=== PATIENT | female | born 1970 | race African-American/Black ===

== ENCOUNTER 2020-08-23 13:07 | Inpatient (IN) | payer OTHER ==
[2020-08-23 13:38] VITALS: BMI 22.8
[2020-08-23] MEDS ORDERED: MAG HYDROX/AL HYDROX/SIMETH 30 ML UNIT-DOSE CUP PO PRN (16:01)
[2020-08-23] MEDS ORDERED: chlordiazePOXIDE HCL 25 MG CAPSULE PO PRN (16:01)
[2020-08-23] MEDS ORDERED: MENTHOL/PHENOL 1 EACH UD MM PRN (16:01)
[2020-08-23] MEDS ORDERED: IBUPROFEN 400 MG TABLET (FP) PO PRN (16:01)
[2020-08-23] MEDS ORDERED: MAGNESIUM CITRATE 300 ML BOTTLE PO PRN (16:01)
[2020-08-23] MEDS ORDERED: ONDANSETRON *ODT* 4 MG TABLET SL PRN (16:01)
[2020-08-23] MEDS ORDERED: MAGNESIUM HYDROX 2400MG/30ML ORAL SUSPENSION 30 ML CUP PO PRN (16:01)
[2020-08-23] MEDS ORDERED: BISMUTH SUBSALICYLATE 524 MG/30 ML UD PO PRN (16:01)
[2020-08-23] MEDS ORDERED: ACETAMINOPHEN 325 MG TABLET (FP) PO PRN ×2 (16:01)
[2020-08-23] MEDS ORDERED: INSULIN (NOVOLOG) ASPART 100 UNITS/ML 10ML VIAL ONE (16:24)
[2020-08-23] MEDS: INSULIN SLIDING SCALE (NOVOLOG) 1 VIAL SQ SCH ×2 (16:45→22:26)
[2020-08-23] MEDS: hydrOXYzine PAMOATE 25 MG CAPSULE (FP) PO SCH ×2 (18:29→22:23)
[2020-08-23] MEDS: chlordiazePOXIDE HCL 25 MG CAPSULE PO SCH ×2 (18:29→22:22)
[2020-08-23] MEDS: PRENATAL VITAMINS W/ FOLIC ACID TABLET (FP) PO SCH (18:29)
[2020-08-23] MEDS: MELATONIN 5 MG TABLETS PO SCH (22:22)
[2020-08-23] MEDS: THIAMINE HCL 100 MG TABLET (FP) PO SCH (22:23)
[2020-08-24] MEDS: hydrOXYzine PAMOATE 25 MG CAPSULE (FP) PO SCH ×2 (06:01→10:59)
[2020-08-24] MEDS: chlordiazePOXIDE HCL 25 MG CAPSULE PO SCH ×4 (06:01→23:11)
[2020-08-24] MEDS: metFORMIN HCL 500 MG TABLET (FP) PO SCH (06:06)
[2020-08-24] MEDS: INSULIN SLIDING SCALE (NOVOLOG) 1 VIAL SQ SCH ×4 (07:27→23:11)
[2020-08-24] MEDS: PRENATAL VITAMINS W/ FOLIC ACID TABLET (FP) PO SCH (10:59)
[2020-08-24 13:42] LABS: HEMATOCRIT 30.9 % (32.4-45.2); HEMOGLOBIN 10.3 GM/dL (10.7-15.3); MCH 33.7 pg (25.7-33.7); MCHC 33.3 g/dl (32.0-36.0); MEAN CELL VOLUME 101.1 fl (80-96); MEAN PLT VOLUME 8.9 fl (7.5-11.1); PLATELET COUNT 125 K/MM3 (134-434); RBC 3.06 M/mm3 (3.60-5.2); RDW 13.8 % (11.6-15.6); WHITE BLOOD COUNT 4.8 K/mm3 (4.0-10.0)
[2020-08-24 13:47] LABS: POTASSIUM 4.2 mmol/L (3.5-5.1)
[2020-08-24 13:58] LABS: CALCIUM 7.6 mg/dL (8.5-10.1)
[2020-08-24 13:59] LABS: BLOOD UREA NITROGEN 6.3 mg/dL (7-18)
[2020-08-24 14:02] LABS: CREATININE 0.7 mg/dL (0.55-1.3)
[2020-08-24 14:03] LABS: TOT PROT 7.4 g/dl (6.4-8.2)
[2020-08-24] MEDS: THIAMINE HCL 100 MG TABLET (FP) PO SCH (23:02)
[2020-08-24] MEDS: MELATONIN 5 MG TABLETS PO SCH (23:02)
[2020-08-24] MEDS: hydrOXYzine PAMOATE 25 MG CAPSULE (FP) PO PRN (23:03)
[2020-08-25] MEDS: chlordiazePOXIDE HCL 25 MG CAPSULE PO SCH ×4 (07:07→22:54)
[2020-08-25] MEDS: hydrOXYzine PAMOATE 25 MG CAPSULE (FP) PO PRN ×2 (07:08→22:57)
[2020-08-25] MEDS: metFORMIN HCL 500 MG TABLET (FP) PO SCH (07:08)
[2020-08-25] MEDS: INSULIN SLIDING SCALE (NOVOLOG) 1 VIAL SQ SCH ×4 (07:35→22:56)
[2020-08-25] MEDS: PRENATAL VITAMINS W/ FOLIC ACID TABLET (FP) PO SCH (10:35)
[2020-08-25] MEDS: METHOCARBAMOL 500 MG TABLET PO PRN ×2 (10:38→22:57)
[2020-08-25] MEDS: FERROUS SO4 325 MG TABLET (FP) PO SCH (17:54)
[2020-08-25] MEDS ORDERED: MIRTAZAPINE 15 MG TABLET (FP) PO SCH (22:00)
[2020-08-25] MEDS: THIAMINE HCL 100 MG TABLET (FP) PO SCH (22:54)
[2020-08-25] MEDS: MELATONIN 5 MG TABLETS PO SCH (22:55)
[2020-08-26] MEDS ORDERED: chlordiazePOXIDE HCL 10 MG CAPSULE PO PRN
[2020-08-26] MEDS ORDERED: LACTULOSE 20 GM/30 ML UDC (FOR ORAL USE ONLY) PO PRN (04:46)
[2020-08-26] MEDS ORDERED: chlordiazePOXIDE HCL 10 MG CAPSULE PO SCH (05:00)
[2020-08-26] MEDS: LORazepam 1 MG TABLET PO SCH ×2 (05:08→11:56)
[2020-08-26] MEDS: metFORMIN HCL 500 MG TABLET (FP) PO SCH (06:17)
[2020-08-26] MEDS: INSULIN SLIDING SCALE (NOVOLOG) 1 VIAL SQ SCH ×2 (06:17→12:10)
[2020-08-26] MEDS: FERROUS SO4 325 MG TABLET (FP) PO SCH ×2 (08:27→11:59)
[2020-08-26 10:26] LABS: BASO % 0.5 % (0-2.0); HEMATOCRIT 32.6 % (32.4-45.2); HEMOGLOBIN 10.7 GM/dL (10.7-15.3); LYMPH % 18.9 % (8-40); MCH 33.1 pg (25.7-33.7); MCHC 32.7 g/dl (32.0-36.0); MEAN CELL VOLUME 101.2 fl (80-96); MEAN PLT VOLUME 9.5 fl (7.5-11.1); MONO % 12.8 % (3.8-10.2); NEUT % 67.8 % (42.8-82.8); PLATELET COUNT 90 K/MM3 (134-434); RBC 3.22 M/mm3 (3.60-5.2); RDW 14.2 % (11.6-15.6); WHITE BLOOD COUNT 5.8 K/mm3 (4.0-10.0)
[2020-08-26 10:30] LABS: POTASSIUM 3.2 mmol/L (3.5-5.1)
[2020-08-26 10:35] VITALS: BP 97/65; PULSE 116; TEMP 96.6
[2020-08-26 10:36] LABS: CALCIUM 8.6 mg/dL (8.5-10.1)
[2020-08-26 10:37] LABS: ALBUMIN 2.7 g/dl (3.4-5.0); BLOOD UREA NITROGEN 6.8 mg/dL (7-18)
[2020-08-26 10:40] LABS: CREATININE 0.9 mg/dL (0.55-1.3)
[2020-08-26 10:42] LABS: TOT PROT 7.3 g/dl (6.4-8.2)
[2020-08-26] MEDS ORDERED: POTASSIUM CHLORIDE TABS 20 MEQ TABLET.ER (FP) PO ONE (11:16)
[2020-08-26 11:46] LABS: ANISOCYTOSIS 1+; MACROCYTOSIS 1+; PLATELET ESTIMATE DECREASED
[2020-08-26] MEDS: PRENATAL VITAMINS W/ FOLIC ACID TABLET (FP) PO SCH (11:55)
[2020-08-26] MEDS ORDERED: LACTULOSE 20 GM/30 ML UDC (FOR ORAL USE ONLY) PO ONE (12:06)
[2020-08-27] MEDS ORDERED: LORazepam 0.5 MG TABLET PO SCH (05:00)
[2020-08-27] MEDS ORDERED: chlordiazePOXIDE HCL 10 MG CAPSULE PO SCH (05:00)
[2020-08-28] MEDS ORDERED: LORazepam 0.5 MG TABLET PO PRN
[2020-08-28] MEDS ORDERED: chlordiazePOXIDE HCL 10 MG CAPSULE PO ONE (05:00)
[2020-08-28] MEDS ORDERED: LORazepam 0.5 MG TABLET PO ONE (05:00)
== END 2020-08-26 13:15 | disposition left against medical advice (07) | DRG 770 ==
LOC: YASAS 13:07 → Y3N 16:24
PROVIDERS: ADMIT Allergy & Immunology; ATTEND Allergy & Immunology
PROC: HZ2ZZZZ Detoxification Services for Substance Abuse Treatment (ICD-10-PCS; principal; 2020-08-23)
DX: F10.230 Alcohol dependence with withdrawal, uncomplicated (principal); F14.20 Cocaine dependence, uncomplicated; F12.20 Cannabis dependence, uncomplicated; F19.282 Other psychoactive substance dependence with psychoactive substance-induced sleep disorder; F19.280 Other psychoactive substance dependence with psychoactive substance-induced anxiety disorder; F19.24 Other psychoactive substance dependence with psychoactive substance-induced mood disorder; F43.10 Post-traumatic stress disorder, unspecified; U07.1 COVID-19; E78.5 Hyperlipidemia, unspecified; E11.65 Type 2 diabetes mellitus with hyperglycemia; Z79.84 Long term (current) use of oral hypoglycemic drugs; I10 Essential (primary) hypertension; Z91.410 Personal history of adult physical and sexual abuse; Z88.8 Allergy status to other drugs, medicaments and biological substances; R79.89 Other specified abnormal findings of blood chemistry
CPT/HCPCS: 36415; 80053; 81025; 82140; 82962; 85025; 85027; 86780; 93005; 93010; C9803; U0003

== ENCOUNTER 2022-08-01 12:20 | Inpatient (IN) | payer OTHER ==
[2022-08-01 14:01] VITALS: BMI 21.9
[2022-08-01] MEDS ORDERED: hydrOXYzine PAMOATE 25 MG CAPSULE (FP) PO PRN (14:55)
[2022-08-01] MEDS ORDERED: ONDANSETRON *ODT* 4 MG TABLET SL PRN (14:55)
[2022-08-01] MEDS ORDERED: DICYCLOMINE HCL 10 MG CAPSULE PO PRN (14:55)
[2022-08-01] MEDS ORDERED: diazePAM 5 MG TABLET PO PRN (14:55)
[2022-08-01] MEDS ORDERED: POLYETHYLENE GLYCOL (HEALTHYLAX) 3350 17 GM PACKET PO PRN (14:55)
[2022-08-01] MEDS ORDERED: BENZOCAINE/MENTHOL (CHLORASEPTIC ) LOZENGE MM PRN (14:55)
[2022-08-01] MEDS ORDERED: MAGNESIUM HYDROX 2400MG/30ML ORAL SUSPENSION 30 ML CUP PO PRN (14:55)
[2022-08-01] MEDS ORDERED: ACETAMINOPHEN 325 MG TABLET (FP) PO PRN ×2 (14:55)
[2022-08-01] MEDS ORDERED: NALOXONE HCL (KLOXXADO) 8 MG SPRAY NS PRN (14:55)
[2022-08-01] MEDS ORDERED: IBUPROFEN 400 MG TABLET (FP) PO PRN (14:55)
[2022-08-01] MEDS ORDERED: MAG HYDROX/AL HYDROX/SIMETH 30 ML UNIT-DOSE CUP PO PRN (14:55)
[2022-08-01] MEDS ORDERED: NICOTINE 10 MG CARTRIDGE (INHALER) IH PRN (14:55)
[2022-08-01] MEDS ORDERED: LOPERAMIDE HCL 2 MG CAPSULE PO PRN (14:55)
[2022-08-01] MEDS ORDERED: BISMUTH SUBSALICYLATE 524 MG/30 ML PO PRN (14:55)
[2022-08-01] MEDS ORDERED: diazePAM 5 MG TABLET ONE (16:50)
[2022-08-01] MEDS ORDERED: cloNIDine HCL 0.1 MG TABLET ONE (16:51)
[2022-08-01] MEDS ORDERED: PRENATAL VITAMINS W/ FOLIC ACID TABLET (FP) PO ONE (16:51)
[2022-08-01] MEDS: PRENATAL VITAMINS W/ FOLIC ACID TABLET (FP) PO SCH (16:57)
[2022-08-01] MEDS: diazePAM 5 MG TABLET PO SCH ×2 (16:57→22:38)
[2022-08-01] MEDS: cloNIDine HCL 0.1 MG TABLET PO PRN ×2 (17:04→21:08)
[2022-08-01] MEDS: THIAMINE HCL 100 MG TABLET (FP) PO SCH (22:38)
[2022-08-01] MEDS: MELATONIN 5 MG TABLETS PO SCH (22:38)
[2022-08-01] MEDS: METHOCARBAMOL 500 MG TABLET PO PRN (22:39)
[2022-08-02] MEDS: diazePAM 5 MG TABLET PO SCH ×4 (05:24→22:20)
[2022-08-02] MEDS: PRENATAL VITAMINS W/ FOLIC ACID TABLET (FP) PO SCH (10:14)
[2022-08-02 11:00] LABS: ALBUMIN 2.7 g/dl (3.4-5.0); BLOOD UREA NITROGEN 9.6 mg/dL (7-18); CALCIUM 8.5 mg/dL (8.5-10.1); HEMATOCRIT 30.6 % (32.4-45.2); HEMOGLOBIN 10.2 GM/dL (10.7-15.3); MCH 32.8 pg (25.7-33.7); MCHC 33.5 g/dl (32.0-36.0); MEAN CELL VOLUME 97.9 fl (80-96); MEAN PLT VOLUME 7.4 fl (7.5-11.1); PLATELET COUNT 140 10^3/uL (134-434); RBC 3.12 M/mm3 (3.60-5.2); RDW 15.2 % (11.6-15.6); WHITE BLOOD COUNT 3.1 K/mm3 (4.0-10.0)
[2022-08-02 11:03] LABS: CREATININE 0.8 mg/dL (0.55-1.3)
[2022-08-02 11:05] LABS: BILIRUBIN,TOTAL 0.7 mg/dL (0.2-1); TOT PROT 7.7 g/dl (6.4-8.2)
[2022-08-02] MEDS: INSULIN SLIDING SCALE (NOVOLOG) 1 VIAL SQ SCH (17:00)
[2022-08-02] MEDS: MELATONIN 5 MG TABLETS PO SCH (21:52)
[2022-08-02] MEDS: THIAMINE HCL 100 MG TABLET (FP) PO SCH (21:52)
[2022-08-03] MEDS: diazePAM 5 MG TABLET PO SCH ×3 (05:25→21:33)
[2022-08-03] MEDS: INSULIN SLIDING SCALE (NOVOLOG) 1 VIAL SQ SCH ×3 (06:58→17:08)
[2022-08-03] MEDS ORDERED: PATIENT'S OWN MEDICATION (NON-FORMULARY) (Metformin Hcl [Metformin Er Osmotic] 1,000 MG Ta PO SCH (10:00)
[2022-08-03] MEDS: PRENATAL VITAMINS W/ FOLIC ACID TABLET (FP) PO SCH (10:22)
[2022-08-03] MEDS ORDERED: INSULIN SLIDING SCALE (NOVOLOG) 1 VIAL SQ ONE (12:40)
[2022-08-03] MEDS: LACTULOSE 20 GM/30 ML UDC (FOR ORAL USE ONLY) PO SCH ×2 (17:10→21:32)
[2022-08-03] MEDS: THIAMINE HCL 100 MG TABLET (FP) PO SCH (21:32)
[2022-08-03] MEDS: MELATONIN 5 MG TABLETS PO SCH (21:32)
[2022-08-03] MEDS: METHOCARBAMOL 500 MG TABLET PO PRN (21:32)
[2022-08-03] MEDS: cloNIDine HCL 0.1 MG TABLET PO PRN (21:32)
[2022-08-04] MEDS: diazePAM 5 MG TABLET PO SCH ×2 (05:42→17:02)
[2022-08-04] MEDS: INSULIN SLIDING SCALE (NOVOLOG) 1 VIAL SQ SCH ×3 (06:30→17:01)
[2022-08-04] MEDS: LACTULOSE 20 GM/30 ML UDC (FOR ORAL USE ONLY) PO SCH ×4 (09:51→21:07)
[2022-08-04] MEDS: PRENATAL VITAMINS W/ FOLIC ACID TABLET (FP) PO SCH (09:51)
[2022-08-04] MEDS: cloNIDine HCL 0.1 MG TABLET PO PRN (21:07)
[2022-08-04] MEDS: METHOCARBAMOL 500 MG TABLET PO PRN (21:07)
[2022-08-04] MEDS: MELATONIN 5 MG TABLETS PO SCH (21:07)
[2022-08-04] MEDS: THIAMINE HCL 100 MG TABLET (FP) PO SCH (21:07)
[2022-08-04] MEDS: IBUPROFEN 600 MG TABLET (FP) PO PRN (21:08)
[2022-08-05] MEDS ORDERED: diazePAM 5 MG TABLET PO ONE (06:00)
[2022-08-05] MEDS: IBUPROFEN 600 MG TABLET (FP) PO PRN (06:07)
[2022-08-05] MEDS: INSULIN SLIDING SCALE (NOVOLOG) 1 VIAL SQ SCH (06:10)
[2022-08-05] MEDS ORDERED: INSULIN SLIDING SCALE (NOVOLOG) 1 VIAL SQ ONE (06:30)
[2022-08-05 08:57] VITALS: BP 103/64; PULSE 99; RESP 18; TEMP 96.9
== END 2022-08-05 09:34 | disposition home or self-care (01) | DRG 775 ==
LOC: YASAS 12:20 → Y3N 15:52
PROVIDERS: ADMIT Allergy & Immunology; ATTEND Surgery
PROC: HZ2ZZZZ Detoxification Services for Substance Abuse Treatment (ICD-10-PCS; principal; 2022-08-01)
DX: F10.230 Alcohol dependence with withdrawal, uncomplicated (principal); F10.24 Alcohol dependence with alcohol-induced mood disorder; F19.280 Other psychoactive substance dependence with psychoactive substance-induced anxiety disorder; F19.282 Other psychoactive substance dependence with psychoactive substance-induced sleep disorder; F19.24 Other psychoactive substance dependence with psychoactive substance-induced mood disorder; F43.10 Post-traumatic stress disorder, unspecified; E72.20 Disorder of urea cycle metabolism, unspecified; E78.2 Mixed hyperlipidemia; I10 Essential (primary) hypertension; E11.59 Type 2 diabetes mellitus with other circulatory complications; Z79.84 Long term (current) use of oral hypoglycemic drugs; M54.50 Low back pain, unspecified; G89.29 Other chronic pain; Z88.0 Allergy status to penicillin
CPT/HCPCS: 36415; 71046-TC-FY; 80053; 81025; 82140; 82962; 83036; 85027; 86780; C9803-CS; U0003; U0005